=== PATIENT | male | born 1980 | race Caucasian/White ===

== ENCOUNTER 2018-06-24 12:59 | Outpatient (CLI) | payer OTHER ==
--- NOTE | 2018-06-24 14:54 | ULT ---
TESTICULAR/SCROTAL ULTRASOUND: Date: 06/24/18 HISTORY: Injured left testicle last month with left testicular pain. TECHNIQUE: Multiplanar Low scale and color Doppler images were obtained in a testicular/scrotal ultrasound. Spe ctral analysis of the Doppler waveforms of the testicles were performed. FINDINGS: Both testicles are normal in echogenicity without focal lesions and demonstrate normal symmetric inte rnal flow. A small left epididymal cyst is seen measuring 5.0 mm in greatest dimension. No abnormalit y is seen in the right epididymis. No hydrocele is seen. IMPRESSION: Left epididymal cyst. POS: CET
== END 2018-06-24 13:00 | disposition home or self-care (01) ==
LOC: SCSULT 12:59
PROVIDERS: ATTEND Family Medicine
DX: N50.812 Left testicular pain (principal); N50.3 Cyst of epididymis
CPT/HCPCS: 76870; 93976